=== PATIENT | male | born 1985 | race Caucasian/White ===

== ENCOUNTER 2017-03-30 13:21 | Emergency (ER) | payer SELFPAY ==
[~2017-03-30] VITALS: Ht 167.6 cm; Wt 92.0 kg
[2017-03-30] MEDS ORDERED: IBUPROFEN 800MG TABLET PO ONE (18:30)
[2017-03-30] MEDS ORDERED: MORPHINE SULFATE 10 MG/ML CPJ IM ONE (18:30)
[2017-03-30] MEDS ORDERED: TETANUS, DIPHTHERIA, PERTUSSIS VAC/PF 0.5ML (>7YR OLD) IM ONE (18:30)
[2017-03-30] MEDS ORDERED: LIDOCAINE HCL 1% 20ML VIAL (Pyxis) INJ MC ONE (18:30)
[2017-03-30] MEDS ORDERED: BACITRACIN ZINC 15GM TUBE TOP ONE (20:15)
[2017-03-30 21:45] VITALS: BP 128/77
== END 2017-03-30 21:45 | disposition home or self-care (01) ==
LOC: ER 16:21
DX: S61.411A Laceration without foreign body of right hand, initial encounter (principal); W25.XXXA Contact with sharp glass, initial encounter; Y93.89 Activity, other specified; Y92.89 Other specified places as the place of occurrence of the external cause; Y99.8 Other external cause status
CPT/HCPCS: 12001; 29125; 73130; 90471; 90715; 96372; 99284; J2270; J3490; X7700; Z7610